=== PATIENT | male | born 1960 | race Caucasian/White ===

== ENCOUNTER → 2017-05-30 | Outpatient (CLI) | payer OTHER, MEDICAID | END | disposition home or self-care (01) | LOC: US 08:52 | PROC: BW4GZZZ Ultrasonography of Pelvic Region (ICD-10-PCS; principal; 2017-05-30) | PROC: BW40ZZZ Ultrasonography of Abdomen (ICD-10-PCS; 2017-05-30) | DX: R35.1 Nocturia (principal) ==

== ENCOUNTER 2019-04-29 13:03 | Emergency (ER) | payer OTHER ==
[~2019-04-29] VITALS: Ht 182.9 cm; Wt 97.5 kg
[2019-04-29 13:15] VITALS: BP 129/82; Ht 182.9 cm; Wt 97.5 kg
== END 2019-04-29 14:38 | disposition home or self-care (01) ==
LOC: ED 13:03
DX: S60.212A Contusion of left wrist, initial encounter (principal); S20.212A Contusion of left front wall of thorax, initial encounter; V49.9XXA Car occupant (driver) (passenger) injured in unspecified traffic accident, initial encounter; Y93.89 Activity, other specified; Y92.89 Other specified places as the place of occurrence of the external cause; Y99.8 Other external cause status

== ENCOUNTER 2019-06-14 20:58 | Emergency (ER) | payer OTHER ==
[~2019-06-14] VITALS: Ht 182.9 cm; Wt 88.0 kg
[2019-06-14 21:05] VITALS: BP 131/87; Ht 182.9 cm; Wt 88.0 kg
== END 2019-06-15 00:10 | disposition home or self-care (01) ==
LOC: ED 20:58
DX: R30.0 Dysuria (principal); I10 Essential (primary) hypertension; Z98.890 Other specified postprocedural states

== ENCOUNTER 2019-08-07 17:12 | Emergency (ER) | payer OTHER ==
[~2019-08-07] VITALS: Ht 182.9 cm; Wt 84.4 kg
[2019-08-07 17:33] VITALS: Ht 182.9 cm; Wt 84.4 kg
[2019-08-07 18:22] LABS: CALCIUM 8.8 mg/dL (8.5-10.1); CARBON DIOXIDE 30.5 mmol/L (21-32); CHLORIDE SERUM 104 mmol/L (98-107); CREATININE SERUM 0.9 mg/dL (0.7-1.3); GFR1 > 60 mL/min; GLUCOSE SERUM 90 mg/dL (74-106); POTASSIUM SERUM 4.4 mmol/L (3.5-5.1); SODIUM SERUM 140 mmol/L (136-145)
[2019-08-07 18:27] LABS: ALBUMIN 3.5 g/dL (3.4-5.0); ALKALINE PHOSPHATASE 37 U/L (46-116); ALT/SGPT 15 U/L (16-63); AST/SGOT 10 U/L (15-37); TOTAL PROTEIN, SERUM 6.5 g/dL (6.4-8.2)
[2019-08-07 18:28] LABS: BASOPHIL % 0.8 % (0-2); PLATELET COUNT 217 x10^3mcL (130-400); RED CELL DISTRIBUTION WIDTH 14.2 % (11.5-14.5)
[2019-08-07 21:20] VITALS: BP 114/69
== END 2019-08-07 21:20 | disposition home or self-care (01) ==
LOC: ED 17:12
PROVIDERS: Emergency Medicine
DX: I83.893 Varicose veins of bilateral lower extremities with other complications (principal); I10 Essential (primary) hypertension; E03.9 Hypothyroidism, unspecified; K21.9 Gastro-esophageal reflux disease without esophagitis
CPT/HCPCS: 36415; Q0092

== ENCOUNTER 2019-10-08 07:01 | Day surgery (SDC) | payer OTHER ==
[~2019-10-08] VITALS: Ht 182.9 cm; Wt 88.0 kg
[2019-10-08 07:24] VITALS: BP 134/94
[2019-10-08 10:49] VITALS: BP 125/79
== END 2019-10-08 10:35 | disposition home or self-care (01) ==
LOC: DS 07:01 → OR 08:00 → GI 08:00 → DS 10:35
DX: K62.5 Hemorrhage of anus and rectum (principal); D12.5 Benign neoplasm of sigmoid colon; K57.30 Diverticulosis of large intestine without perforation or abscess without bleeding; K63.89 Other specified diseases of intestine; E03.9 Hypothyroidism, unspecified; Z79.899 Other long term (current) drug therapy; Z96.641 Presence of right artificial hip joint
CPT/HCPCS: 45378; J1200; J1610; J2250; J2310; J3010; J3490